=== PATIENT | male | born 1995 | race African-American/Black ===

== ENCOUNTER 2022-07-12 06:17 | Emergency (ER) | payer MEDICAID ==
[~2022-07-12] VITALS: Ht 188 cm; Wt 73.0 kg
[2022-07-12 07:19] LABS: BASOPHILS % 0.9 % (0.0-2.0); EOSINOPHILS % 0.9 % (0.0-5.0); HEMOGLOBIN. 13.2 g/dL (14.0-18.0); LYMPHOCYTES % 16.2 % (20.0-50.0); MEAN CORPUSCULAR HEMOGLOBIN 31.7 pg (28.0-32.0); MEAN CORPUSCULAR VOLUME 91.4 fL (80.0-94.0); MEAN PLATELET VOLUME 6.9 fl (7.4-10.4); PLATELET 302 x1000/uL (130-400); RED BLOOD CELL COUNT 4.16 mill/uL (4.7-6.1); RED CELL DISTRIBUTION WIDTH 12.6 % (11.6-14.6)
[2022-07-12 07:27] LABS: CHLORIDE 101 mEq/L (98-107)
[2022-07-12 08:30] VITALS: BP 120/72
== END 2022-07-12 08:59 | disposition home or self-care (01) ==
LOC: ER 06:17
DX: R00.2 Palpitations (principal); F15.10 Other stimulant abuse, uncomplicated
CPT/HCPCS: 36415; 71045; 80053; 83880; 85025; 87804; 93005; 99285